=== PATIENT | male | born 2000 | race Caucasian/White ===

== ENCOUNTER 2021-09-30 10:43 | Inpatient (IN) ==
[2021-09-30] MEDS ORDERED: NS 0.9% 1000 ml BAG 1,000 ML IV ONE (14:12)
[2021-09-30 14:43] LABS: ABS Lymphocytes 1.1 10^3/ul (1.0-4.8); ABS Monocytes 1.2 10^3/ul (0-0.8); ABS Neutrophils 9.6 10^3/ul (1.5-7.7); Eosinophil % 0.1 %; Hematocrit 44 % (42-52); Hemoglobin 15.3 g/dL (14.0-18.0); Lymphocyte % 9.2 %; Mean Corpuscular HGB Conc 35 g/dL (31-36); Mean Corpuscular Hemoglobin 29 pg (27-31); Mean Corpuscular Volume 83 fL (80-94); Mean Platelet Volume 8.3 fL (7.4-10.4); Nucleated Red Blood Cells % 0.1; Platelet Count 258 10^3/uL (150-450); Red Blood Count 5.28 10^6 /uL (4.18-5.48); Red Cell Distribution Width 14 % (10-15)
[2021-09-30 15:02] LABS: Calcium 10.3 mg/dL (8.6-10.3); Potassium 3.9 mmol/L (3.5-5.0); eGFR CKD-EPI 128.5 (>60)
[2021-09-30] MEDS ORDERED: Iohexol 300 (CONTRAST) 10 ML SDV IV ONE (15:17)
[2021-09-30] MEDS ORDERED: NS 0.9% 1000 ml BAG 1,000 ML IV SCH (17:15)
[2021-09-30] MEDS ORDERED: Naloxone 0.4 mg VIAL 0.4 mg/ml 1 ml VIAL IV PRN (18:42)
[2021-09-30] MEDS ORDERED: HYDROmorphone 1 MG/1 ML SYRINGE IV PRN (18:42)
[2021-09-30] MEDS ORDERED: fentaNYL 100 mcg/2 ml 50 MCG/ML VIAL IV PRN (18:42)
[2021-09-30] MEDS ORDERED: Ondansetron 4 mg VIAL 2 MG/ML 2 ml VIAL IV PRN (18:42)
[2021-09-30] MEDS ORDERED: Rocuronium 50 mg VIAL 10 mg/ml 5 ml VIAL (50 mg) ONE (18:45)
[2021-09-30] MEDS ORDERED: fentaNYL 250 mcg/5 ml 50 MCG/ML 5 ml VIAL (250 MCG) ONE (18:45)
[2021-09-30] MEDS ORDERED: Midazolam 2 mg/2 ml VIAL 1 mg/ml 2 ml VIAL (2 mg) ONE (18:45)
[2021-09-30] MEDS ORDERED: Propofol 10 MG/ML 20 ML BTL ONE (18:47)
[2021-09-30] MEDS ORDERED: Enoxaparin 40 MG/0.4 ML SYR SUBCUT SCH (22:00)
[2021-09-30] MEDS: D5LR 1000 ml BAG 1,000 ML IV SCH (22:20)
[2021-09-30] MEDS: Clindamycin 600 MG/D5W BAG 600 MG/50 ML BAG IV SCH (23:11)
[2021-10-01] MEDS: Dexamethasone IV 4 MG/ML VIAL 1 ml VIAL IV SLOW PU SCH ×4 (00:07→17:16)
[2021-10-01] MEDS: Clindamycin 600 MG/D5W BAG 600 MG/50 ML BAG IV SCH ×4 (05:39→23:24)
[2021-10-01 05:53] LABS: ABS Lymphocytes 0.6 10^3/ul (1.0-4.8); ABS Monocytes 0.3 10^3/ul (0-0.8); ABS Neutrophils 7.8 10^3/ul (1.5-7.7); Hematocrit 43 % (42-52); Hemoglobin 15.2 g/dL (14.0-18.0); Lymphocyte % 6.5 %; Mean Corpuscular HGB Conc 35 g/dL (31-36); Mean Corpuscular Hemoglobin 29 pg (27-31); Mean Corpuscular Volume 83 fL (80-94); Mean Platelet Volume 8.7 fL (7.4-10.4); Nucleated Red Blood Cells % 0.1; Platelet Count 249 10^3/uL (150-450); Red Blood Count 5.16 10^6 /uL (4.18-5.48); Red Cell Distribution Width 14 % (10-15); White Blood Count 8.7 10^3/uL (3.5-10.8)
[2021-10-01 06:14] LABS: Calcium 9.8 mg/dL (8.6-10.3); Potassium 5.1 mmol/L (3.5-5.0); eGFR CKD-EPI 129.4 (>60)
[2021-10-01] MEDS: D5LR 1000 ml BAG 1,000 ML IV SCH ×2 (10:07→23:24)
[2021-10-01] MEDS: Chlorhexidine MOUTHWASH 0.12% 15 ML UDC SWISH SPIT SCH ×4 (10:08→21:59)
[2021-10-02] MEDS: Clindamycin 600 MG/D5W BAG 600 MG/50 ML BAG IV SCH ×2 (04:27→12:36)
[2021-10-02 05:50] LABS: ABS Monocytes 0.8 10^3/ul (0-0.8); ABS Neutrophils 8.9 10^3/ul (1.5-7.7); Hematocrit 41 % (42-52); Hemoglobin 14.3 g/dL (14.0-18.0); Mean Corpuscular HGB Conc 35 g/dL (31-36); Mean Corpuscular Hemoglobin 29 pg (27-31); Mean Corpuscular Volume 84 fL (80-94); Platelet Count 271 10^3/uL (150-450); Red Cell Distribution Width 14 % (10-15); White Blood Count 10.6 10^3/uL (3.5-10.8)
[2021-10-02 06:26] LABS: Calcium 9.7 mg/dL (8.6-10.3); Potassium 3.9 mmol/L (3.5-5.0); eGFR CKD-EPI 137.1 (>60)
[2021-10-02] MEDS: Chlorhexidine MOUTHWASH 0.12% 15 ML UDC SWISH SPIT SCH ×2 (09:08→12:42)
[2021-10-02 12:06] VITALS: BP 126/64
== END 2021-10-02 12:30 | disposition home or self-care (01) | DRG 711 ==
LOC: ED 10:43 → SDS 19:20 → SSU 19:20
PROVIDERS: ADMIT Internal Medicine; ATTEND Internal Medicine